=== PATIENT | female | born 1965 | race Two or more races ===

== ENCOUNTER 2023-07-29 09:45 | Outpatient (CLI) | payer OTHER | END 2023-07-29 10:11 | disposition home or self-care (01) | LOC: MAMO-SONO 09:45 | DX: Z12.31 Encounter for screening mammogram for malignant neoplasm of breast (principal); Z12.39 Encounter for other screening for malignant neoplasm of breast; N64.4 Mastodynia ==

== ENCOUNTER 2025-10-02 09:43 | Outpatient (CLI) | payer OTHER | END 2025-10-02 09:54 | disposition home or self-care (01) | LOC: MAMO-SONO 09:43 | DX: N64.4 Mastodynia (principal); N64.1 Fat necrosis of breast; Z12.31 Encounter for screening mammogram for malignant neoplasm of breast; Z76.0 Encounter for issue of repeat prescription; Z13.1 Encounter for screening for diabetes mellitus; Z13.0 Encounter for screening for diseases of the blood and blood-forming organs and certain disorders involving the immune mechanism; Z13.29 Encounter for screening for other suspected endocrine disorder; Z13.220 Encounter for screening for lipoid disorders; Z13.89 Encounter for screening for other disorder ==